=== PATIENT | female | born 1955 | race Caucasian/White ===

== ENCOUNTER → 2016-12-19 | Outpatient (CLI) | payer BC, OTHER ==
[~2016-12-19] MED LIST: ALPR.25T PO; ALPR1T PO; ALPR1TAB2 PO; BUPR-42 PO; DESV50TA PO; DICY10CA12 PO; DOXE25CA2 PO; EST30C VG; ESTR0.5T PO; ESZO3TAB30 PO; MEDR2.5T6 PO; NEBI5TAB8 PO; OMEP-10 PO; OXYC-197 PO; RANI150T66 PO; SERT100T8 PO; SERT50TA PO; SPIR25TA3 PO; ZLP10T PO
--- NOTE | 2016-12-19 11:44 | Diagnostic Imaging Report ---
EXAMINATION: DEXA scan. INDICATION: Osteopenia. TECHNIQUE: Bone mineral density estimated based on dual energy radiography over the lumbar spine and femoral necks, was performed. FINDINGS: The lumbar spine T-score is -2.7. T score over the left femoral neck is -2.5 and on the right side is -2.3. IMPRESSION: Osteoporosis. Dictated by: Dictated on workstation # [id number]
--- NOTE | 2016-12-20 08:22 | Diagnostic Imaging Report ---
Bilateral screening mammogram 2D views with tomosynthesis with implants The current study was also evaluated with a Computer Aided Detection (CAD) system. Indication: Screening. No current complaints stated on the questionnaire. COMPARISON: 12/25/15 FINDINGS: Tomography is performed on the implant displaced views and full mammograms including the implants are also performed in addition. Bilateral subpectoral symmetric appearing implants are again seen without significant change. The breast parenchyma is of scattered fibroglandular tissues. Allowing for technique and positional differences, no suspicious change is seen. IMPRESSION: No significant change. ACR BI-RADS Category 2: Benign findings. Result letter will be mailed to the patient. Note: At least 10% of breast cancer is not imaged by mammography. Dictated by: Dictated on workstation # [id number]
== END ==
LOC: RAD 11:07
PROVIDERS: ATTEND Nurse Practitioner
DX: Z12.31 Encounter for screening mammogram for malignant neoplasm of breast (principal); M81.0 Age-related osteoporosis without current pathological fracture
CPT/HCPCS: 77067; 77080

== ENCOUNTER → 2018-02-11 | Outpatient (CLI) | payer OTHER ==
[~2018-02-11] MED LIST changes: -OXYC-197 PO; +OXYC1TAB87 PO
--- NOTE | 2018-02-11 11:38 | Diagnostic Imaging Report ---
INDICATION: Routine screening. Comparison is made with prior mammogram from 12/19/2016 and 12/25/2015. 2-D and 3-D bilateral screening mammography was performed with a Computer Aided Detection (CAD) system. FINDINGS: Bilateral breast implants are again noted. Implant contours are smooth. Scattered fibroglandular densities throughout both breasts are noted. The parenchymal pattern appears stable. No mass or malignant appearing microcalcifications are seen. The axillae are unremarkable. IMPRESSION: No mammographic features suspicious for malignancy are identified. ACR BI-RADS Category 2: Benign findings. Result letter will be mailed to the patient. Note: At least 10% of breast cancer is not imaged by mammography. Dictated by: Dictated on workstation # [id number]
== END ==
LOC: RAD 09:48
PROVIDERS: ATTEND Internal Medicine
DX: Z12.31 Encounter for screening mammogram for malignant neoplasm of breast (principal)
CPT/HCPCS: 77067

== ENCOUNTER → 2019-05-27 | Outpatient (CLI) | payer OTHER ==
--- NOTE | 2019-05-28 10:15 | Diagnostic Imaging Report ---
INDICATION: Routine screening. Comparison is made with prior mammogram from 02/10/2018 and 12/19/2016. 2-D and 3-D bilateral screening mammography was performed with CAD. Bilateral breast implants are again noted. Implant contours appear to be smooth. Scattered fibroglandular densities are identified throughout both breasts. The parenchymal pattern is stable. No mass or malignant-appearing microcalcifications are seen. Axillae are unremarkable. IMPRESSION: BI-RADS Category 2 No mammographic features suspicious for malignancy are identified. ACR BI-RADS Category 2: Benign findings. Result letter will be mailed to the patient. Note: At least 10% of breast cancer is not imaged by mammography. Dictated by: Dictated on workstation # [id number]
== END ==
LOC: RAD 15:02
PROVIDERS: ATTEND Internal Medicine
DX: Z12.31 Encounter for screening mammogram for malignant neoplasm of breast (principal)
CPT/HCPCS: 77067